=== PATIENT | male | born 1955 | race American Indian/Alaskan Native ===

== ENCOUNTER 2019-09-24 07:50 | Inpatient (IN) | payer MEDICAID, MEDICARE ==
[~2019-09-24 07:50] MED LIST: ALBUMIN HUMAN 5% (12.5 GM/250 ML) INJ IV ONE; CALCIUM CHLORIDE 1,000 MG/10 ML SYRINGE IV ONE
[2019-09-24] MEDS ORDERED: HEPARIN/NS 5000 UNIT/500ML 1,000 ML IR ONE ×2 (08:20→11:26)
[2019-09-24] MEDS ORDERED: LIDOCAINE (2%) 20 MG/1 ML VIAL 20 ML MDV INFILTRATI ONE (08:21)
[2019-09-24 08:27] LABS: Basophils % (Auto) 0.3 % (0.0-1.8); Eosinophils # (Auto) 0.3 K/mm3 (0.0-0.4); Eosinophils % (Auto) 2.7 % (0.0-4.3); Hematocrit 40.2 % (35.5-45.6); Hemoglobin 13.2 gm/dl (11.8-15.2); Lymphocytes # (Auto) 1.5 K/mm3 (1.2-5.4); Lymphocytes % (Auto) 15.9 % (13.4-35.0); Mean Corpuscular HGB Conc 33 % (32-34); Mean Corpuscular Volume 86 fl (84-94); Monocytes # (Auto) 0.9 K/mm3 (0.0-0.8); Monocytes % (Auto) 10.1 % (0.0-7.3); Platelet Count 222 K/mm3 (140-440); Red Blood Count 4.69 M/mm3 (3.65-5.03); Red Cell Distribution Width 17.1 % (13.2-15.2)
[2019-09-24] MEDS ORDERED: ceFAZolin/Water 2 GM/20 ML 2 GM/20 ML SYRINGE IV ONE ×2 (08:35→13:12)
[2019-09-24 08:37] LABS: INR 1.06 (0.87-1.13)
[2019-09-24] MEDS ORDERED: fentaNYL 100 MCG/2 ML INJ ONE (08:42)
[2019-09-24] MEDS ORDERED: SODIUM CHLORIDE 0.9% 500 ML 500 ML IV SCH (09:00)
[2019-09-24] MEDS ORDERED: SODIUM CHLORIDE 0.9% 1000 ML 1,000 ML IV SCH (09:00)
[2019-09-24] MEDS ORDERED: PROTAMINE SULFATE 50 MG/5 ML INJ ONE (09:22)
[2019-09-24] MEDS ORDERED: SODIUM CHLORIDE 0.9% 1000 ML 1,000 ML ONE ×2 (10:14→13:52)
--- NOTE | 2019-09-24 10:49 | Anesthesia Consultation ---
Anesthesia Consult and Med Hx Date of service: 09/24/19 - Airway Anesthetic Teeth Evaluation: Poor ROM Head & Neck: Adequate Mental/Hyoid Distance: Adequate Mallampati Class: Class III Intubation Access Assessment: Possibly Difficult - Pulmonary Exam CTA: Yes - Cardiac Exam Cardiac Exam: RRR - Pre-Operative Health Status ASA Pre-Surgery Classification: ASA3 Proposed Anesthetic Plan: General - Pulmonary Hx Smoking: Yes (former smoker) Hx Respiratory Symptoms: No - Cardiovascular System Hx Hypertension: Yes (took antihypertensives this morning) Hx Heart Attack/AMI: No Hx Percutaneous Transluminal Coronary Angioplasty (PTCA): No Hx Cardia Arrhythmia: No Hx Peripheral Vascular Disease: Yes - Central Nervous System CVA: 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 Now scheduled for EVAR. Anesthetic plan discussed with FUAD.
[2019-09-24] MEDS ORDERED: fentaNYL 100 MCG/2 ML INJ IV PRN (10:50)
--- NOTE | 2019-09-24 10:50 | Anesthesia Day of Surgery ---
Anesthesia Day of Surgery - Day of Surgery Patient Examined: Yes Patient H&P Reviewed: Yes Patient is NPO: Yes Beta Blockers: Yes (metoprolol this morning)
[2019-09-24] MEDS: HEPARIN 10,000 UNITS/10 ML VIAL ONE ×2 (10:55→11:10)
[2019-09-24] MEDS ORDERED: propofoL 200 MG/20 ML VIAL IV ONE ×3 (11:11)
[2019-09-24] MEDS ORDERED: HEPARIN 10,000 UNITS/10 ML VIAL ONE ×2 (11:13→12:10)
--- NOTE | 2019-09-24 14:44 | Post Operative Note ---
Pre-op diagnosis: Infrarenal Abdominal Aortic Aneurysm and Right Common Iliac Aneurysm Post-op diagnosis: same Procedure: 1. Bilateral Percutaneous Femoral Artery Access 2. Right Iliac Branch Endoprosthesis with [place] Excluder [id number], Right Internal Iliac Limb Extension 16 to 12 taper x 7 3. Endovascular Aortic Aneurysm Repair with [place] Excluder Main Body [id number], Right Iliac Limb Extension 27x12, Left Iliac Limb [id number] 4. Aortic Cuff Extension with [place] Excluder 26x3.3cm 5. Closure of Bilateral Femoral Access with Perclose device Anesthesia: GETA Surgeon: AREN RENDON Estimated blood loss: other (300ml) Pathology: none Condition: stable Disposition: PACU
[2019-09-24] MEDS ORDERED: ACETAMINOPHEN 325 MG TAB PO PRN (14:45)
[2019-09-24] MEDS ORDERED: MORPHINE 2 MG/1 ML INJ IV PRN (14:45)
[2019-09-24] MEDS ORDERED: HYDROcodone/ACETAMINOPHEN 5-325 MG TAB PO PRN (14:45)
[2019-09-24] MEDS ORDERED: ceFAZolin/NS 1 GM/50 ML 1 GM/50 ML BAG IV SCH ×3 (15:00→18:00)
[2019-09-24] MEDS ORDERED: LIDOCAINE MPF (2%) 20 MG/1 ML VIAL 5 ML ONE (15:30)
[2019-09-24] MEDS ORDERED: SUCCINYLCHOLINE CHLORIDE 200 MG/10 ML INJ MDV ONE (15:30)
[2019-09-24] MEDS ORDERED: ROCURONIUM 50 MG/5 ML INJ IV ONE (15:30)
[2019-09-24] MEDS ORDERED: GLYCOPYRROLATE 0.4 MG/2 ML INJ IV ONE (15:32)
[2019-09-24] MEDS ORDERED: GLYCOPYRROLATE 0.4 MG/2 ML INJ ONE (15:36)
--- NOTE | 2019-09-24 17:16 | Post Anesthesia Evaluation ---
- Post Anesthesia Evaluation Patient Participated: Yes (returned to baseline mentation) Airway Patent: Yes Stable Respiratory Function: Yes Nausea/Vomiting: No Temp > 96.8F: Yes Pain Manageable: Yes Adequeate Hydration: Yes Anesthesia Complications: No Other Comments: Awaiting final disposition ICU vs IMCU vs surgical floor with telemetry. Patient otherwise stable for d/c from PACU.
--- NOTE | 2019-09-24 19:09 | Operative Report ---
STAFF SURGEON: Dr. Rosendo Gannon. PREOPERATIVE DIAGNOSES: 1. Infrarenal abdominal aortic aneurysm. 2. Right common iliac aneurysm. POSTOPERATIVE DIAGNOSES: 1. Infrarenal abdominal aortic aneurysm. 2. Right common iliac aneurysm. PROCEDURE PERFORMED: 1. Bilateral percutaneous common femoral artery access under ultrasound guidance. 2. Right iliac branch endoprosthesis with [place] excluder device measuring 23 mm x 12 mm x 10 cm with right internal iliac limb extension measuring 16-12 mm tapered graft by 7 cm. 3. Endovascular aortic aneurysm repair with [place] excluder device with the main body measuring 26 mm x 12 x 12 cm with right iliac limb extension measuring 27 mm x 12 cm and the left iliac limb extension measuring 20 mm x 10 cm. 4. Aortic cuff extension with [place] excluder device measuring 26 x 3.3 cm. 5. Closure of bilateral femoral arterial access using Perclose device. COMPLICATIONS: None. ESTIMATED BLOOD LOSS: 300 mL. ANESTHESIA: General. INDICATIONS FOR PROCEDURE: This is a 63-year-old gentleman, who during a recent hospitalization had incidental finding of an approximately 6 cm infrarenal abdominal aortic aneurysm as well as greater than 3 cm right common iliac aneurysm. During that hospitalization, the patient was diagnosed with urosepsis, was felt that the patient would not be appropriate to undergo repair at that time. The patient has now recovered from that illness and thought to be suitable to undergo repair. The patient's anatomy was thought to be suitable for endovascular intervention and after discussion with his family member, it was felt appropriate to proceed. They were explained all the risks, benefits and alternatives of procedure, expressed understanding and wished to proceed. DESCRIPTION OF PROCEDURE: After appropriate consent was obtained, the patient was brought back to the blood bank laboratory technologist, placed on table in supine position. The patient was given appropriate medication for general anesthesia, was intubated without difficulty. The patient was prepped and draped from the nipples to the knees in the usual sterile fashion with ChloraPrep. Appropriate preoperative antibiotics were administered. Appropriate timeout was performed indicating correct patient, procedure, and site of procedure. We then began the operation by obtaining a percutaneous access of both common femoral arteries using a micropuncture technique under ultrasound guidance. As we obtained access, the needle was exchanged for a micropuncture sheath using Seldinger technique and then these were upsized to 6-[place] sheaths bilaterally. We then proceeded to pre-close both groins using the Perclose device x 2 in each groin, which deployed adequately and then both groins were then upsized to an 8-[place] sheath bilaterally. We then proceeded to place a 7 cm Amplatz wires into the thoracic aorta bilaterally and then the right groin was upsized to a 16-[place] sheath and the left groin was upsized to a 12-[place] sheath. We then proceeded to using a refugio wire technique, placed a Glidewire through the right groin. This was then snared from the left groin and to create [id number] wire. Care was made to avoid any twisting of the wire. I then proceeded to bring the iliac branch component through the right groin. Prior to doing so, a diagnostic angiogram was performed, which display the iliac bifurcation on the right and then the iliac branch device was then deployed approximately 1 cm above the iliac bifurcation of the right. Once that was complete, then the dilator was placed back into the 12-[place] sheath on the left and under adequate tension was able to be advanced over the bifurcation through the recently deployed device just proximal to the origin of the right internal iliac artery, then at this point, again using a refugio wire technique from the left angled catheter and Glidewire were then able to cannulate the internal iliac origin on the right and this was advanced into the posterior branch. The catheter was then advanced into the posterior branch. A diagnostic angiogram demonstrating that we were within the branch of the internal iliac artery. The wire was then exchanged for 1 cm stiff Amplatz wire. Catheter was removed. Then, the right internal iliac artery extension was then placed with appropriate overlap and deployed into the internal iliac artery on the right. We then proceeded to bring on the field a 16 mm x 4 cm balloon and balloon the overlap of the iliac branch device and the internal iliac artery extension. Once that was appropriately balloon, this was removed. The rest of the external iliac artery extension was deployed. A completion angiogram was performed demonstrating adequate flow into the right external and internal iliac arteries. We then proceeded to upsize the left groin sheath to a second 16-[place] sheath over an Amplatz wire and then the main body was then placed to the level of the renal arteries. A diagnostic aortogram was performed using a power injector. The renals were adequately marked on the screen. The main body was then deployed. It was felt due to the angulation at the neck that the graft would be deployed several millimeters just below the renals with plans to place an aortic cuff and so the graft was deployed to open the contralateral gate. We then attempted to cannulate the contralateral gate from the right groin using an Omniflush catheter and Glidewire. After multiple attempts, this was unsuccessful and so proceeded to deploy the rest of the main body and then proceeded to perform a diagnostic angiogram demonstrating the origin of the iliac bifurcation on the left. This was marked on the screen. Then, the left iliac extension was deployed. Then, an Omniflush catheter was advanced from the left to the level of the flow divider and then a Glidewire was then placed through the right side of the flow divider into the aneurysm sac. Then, using a ___ the Glidewire was then snared and pulled out through the right groin sheath. Then, a vertebral catheter was then used to be advanced over the Glidewire into the contralateral gate and the Glidewire was then able to be switched out for an Amplatz wire. A marking pigtail catheter was then used to determine the appropriate length of the right iliac extension. Once that was marked on the screen, then the right iliac limb was then adequately deployed with appropriate overlap. We then proceeded to then again go back to the neck of the aneurysm. The renals were adequately marked on the screen. After diagnostic aortogram was performed and an appropriate aortic cuff was deployed just below the renals with adequate overlap with the initial main body, we then using the Q50 balloon, proceeded to balloon the aortic neck as well as all the appropriate overlap of the endograft. Once that was complete, a final diagnostic aortogram was performed demonstrating adequate placement of the endograft with no evidence of endoleak. Once that was complete, we removed the catheters and sheath, and then proceeded to close our previously placed Prolene sutures from the Perclose device in each groin, again was deployed adequately and we then proceeded to hold pressure until hemostasis was obtained. Once we were satisfied with hemostasis, then proceeded to close both groins by approximating the skin with a 4-0 Monocryl and Dermabond dressing. Of note, the patient was given unfractionated heparin. Once the initial 6-[place] sheath was placed and ACTs were obtained throughout the remainder of the case for adequate anticoagulation. At the completion of the operation, the patient was given protamine for heparinization reversal. The patient tolerated the procedure well, he emerged from the general anesthesia, was extubated in the blood bank laboratory technologist and sent to recovery in stable condition. All the sponges, instrument and needle counts were correct at completion of the operation. JOB# [id number] VCN/NTS
[2019-09-24] MEDS: METOPROLOL TARTRATE 25 MG TAB PO SCH (22:38)
[2019-09-24] MEDS: ceFAZolin/NS 1 GM/50 ML 1 GM/50 ML BAG IV SCH (22:38)
[2019-09-25] MEDS: ceFAZolin/NS 1 GM/50 ML 1 GM/50 ML BAG IV SCH (04:14)
[2019-09-25 08:37] LABS: Hematocrit 34.7 % (35.5-45.6); Hemoglobin 11.1 gm/dl (11.8-15.2)
[2019-09-25 08:59] LABS: Calcium 9.7 mg/dL (8.4-10.2)
[2019-09-25] MEDS ORDERED: CLOPIDOGREL 75 MG TAB PO SCH (10:00)
[2019-09-25] MEDS ORDERED: LISINOPRIL 10 MG TAB PO SCH (10:00)
[2019-09-25] MEDS ORDERED: ASPIRIN EC 81 MG TAB PO SCH (10:00)
[2019-09-25] MEDS ORDERED: hydroCHLOROthiazide 25 MG TAB PO SCH (10:00)
[2019-09-25] MEDS ORDERED: TAMSULOSIN 0.4 MG CAP PO SCH (10:00)
[2019-09-25] MEDS ORDERED: amLODIPine 10 MG TAB PO SCH (10:00)
--- NOTE | 2019-09-25 10:31 | Progress Note ---
Assessment and Plan POD #1 s/p PEVAR I removed the rivas Patient is doiing well and without complaints The patient looks well and is likely ready for discharge later this afternoon however he needs to ambulate, eat, and urinate now that the rivas has been rem jennifer. If he is able to do all these things without difficulty then he can be discharged later this afternoon. Subjective Date of service: 09/25/19 Principal diagnosis: AAA without mention of Rupture Interval history: Patient is s/p EVAR. He has not complaints at this time. No reported events over night. Objective - Constitutional Vitals: Vital Signs - 12hr 09/24/19 09/24/19 09/25/19 22:38 23:06 04:10 Temperature 97.9 F 98.0 F Pulse Rate 72 86 90 Respiratory 18 18 Rate Blood Pressure 136/87 136/77 144/88 Blood Pressure [Left] O2 Sat by Pulse 94 95 Oximetry 09/25/19 09/25/19 09/25/19 04:25 05:12 07:40 Temperature 98.5 F 98.0 F 97.5 F L Pulse Rate 92 H 96 H 89 Respiratory 18 18 20 Rate Blood Pressure 125/65 169/88 Blood Pressure 144/88 [Left] O2 Sat by Pulse 100 94 95 Oximetry General appearance: Present: no acute distress - Respiratory Respiratory effort: normal - Cardiovascular Rhythm: regular Extremities: pulses intact (bilateral DP pulses are palpable), normal temperature Extremity abnormal: other (Bilateral groin incisions are without hematoma) - Gastrointestinal General gastrointestinal: Present: soft, non-tender, non-distended, other (no palpable pulsatile mass) - Genitourinary Male genitourinary: normal (rivas in place) - Musculoskeletal Musculoskeletal: strength equal bilaterally - Labs CBC & Chem 7: 09/25/19 07:44 09/25/19 07:44 Labs: Abnormal lab results 09/25/19 09/25/19 Range/Units 07:44 07:44 Hgb 11.1 L (11.8-15.2) gm/dl Hct 34.7 L (35.5-45.6) % Potassium 3.4 L (3.6-5.0) mmol/L Carbon Dioxide 18 L (22-30) mmol/L Glucose 128 H (75-100) mg/dL Medications & Allergies - Medications Allergies/Adverse Reactions: Allergies No Known Allergies Allergy (Verified 09/24/19 08:20) Home Medications: Home Medications Medication Instructions Recorded Confirmed Last Taken Type AtorvaSTATin [Lipitor] 20 mg PO DAILY 09/01/19 09/24/19 09/23/19 History 20 mg Metoprolol [Lopressor TAB] 25 mg PO BID 09/01/19 09/24/19 09/24/19 History 25 mg allopurinoL [Zyloprim] 100 mg PO DAILY 09/01/19 09/24/19 09/24/19 History 100 mg amLODIPine 10 mg PO DAILY 09/01/19 09/24/19 09/24/19 History 10 mg hydroCHLOROthiazide [HCTZ] 25 mg PO DAILY 09/01/19 09/24/19 09/24/19 History 25 mg lisinopriL [Zestril TAB] 10 mg PO DAILY 09/01/19 09/24/19 09/24/19 History 10 mg Tamsulosin [Flomax] 0.4 mg PO DAILY 09/24/19 09/24/19 09/24/19 History 0.4mg Active Medications: Generic Name Dose Route Start Last Admin Trade Name Freq PRN Reason Stop Dose Admin Acetaminophen 650 mg 09/24/19 14:45 Tylenol PO Q4H PRN Pain MILD(1-3)/Fever >100.5/NAVARRO Acetaminophen/Hydrocodone Bitart 2 each 09/24/19 14:45 [place] 5/325 PO Q6H PRN Pain, Moderate (4-6) Amlodipine Besylate 10 mg 09/25/19 10:00 Amlodipine PO QDAY ANNIKA Aspirin 81 mg 09/25/19 10:00 Halfprin Ec PO QDAY ANNIKA Atorvastatin Calcium 20 mg 09/24/19 22:00 09/24/19 22:38 Lipitor PO 20 mg QHS ANNIKA Administration Clopidogrel Bisulfate 75 mg 09/25/19 10:00 Plavix PO QDAY ANNIKA Hydrochlorothiazide 25 mg 09/25/19 10:00 Hctz PO QDAY ANNIKA Sodium Chloride 500 mls @ 50 mls/hr 09/24/19 09:00 09/24/19 09:10 Nacl 0.9% 500 Ml IV 50 mls/hr DIRECT ANNIKA Administration Sodium Chloride 1,000 mls @ 100 mls/hr 09/24/19 09:00 Nacl 0.9% 1000 Ml IV DIRECT ANNIKA Lisinopril 10 mg 09/25/19 10:00 Zestril PO QDAY ANNIKA Metoprolol Tartrate 25 mg 09/24/19 22:00 09/24/19 22:38 Metoprolol PO 25 mg BID ANNIKA Administration Morphine Sulfate 2 mg 09/24/19 14:45 Morphine IV Q4H PRN Pain, Moderate (4-6) Tamsulosin HCl 0.4 mg 09/25/19 10:00 Flomax PO QDAY ANNIKA
--- NOTE | 2019-09-25 10:38 | Short Stay Summary ---
Short Stay Documentation Date of service: 09/25/19 Narrative H&P: See H&P - History H&P: obtained from office - Allergies and Medications Current Medications: Allergies No Known Allergies Allergy (Verified 09/24/19 08:20) Home Medications Medication Instructions Recorded Confirmed Last Taken Type AtorvaSTATin [Lipitor] 20 mg PO DAILY 09/01/19 09/24/19 09/23/19 History 20 mg Metoprolol [Lopressor TAB] 25 mg PO BID 09/01/19 09/24/19 09/24/19 History 25 mg allopurinoL [Zyloprim] 100 mg PO DAILY 09/01/19 09/24/19 09/24/19 History 100 mg amLODIPine 10 mg PO DAILY 09/01/19 09/24/19 09/24/19 History 10 mg hydroCHLOROthiazide [HCTZ] 25 mg PO DAILY 09/01/19 09/24/19 09/24/19 History 25 mg lisinopriL [Zestril TAB] 10 mg PO DAILY 09/01/19 09/24/19 09/24/19 History 10 mg Tamsulosin [Flomax] 0.4 mg PO DAILY 09/24/19 09/24/19 09/24/19 History 0.4mg Active Medications Acetaminophen (Tylenol) 650 mg PO Q4H PRN PRN Reason: Pain MILD(1-3)/Fever >100.5/NAVARRO Acetaminophen/Hydrocodone Bitart ([place] 5/325) 2 each PO Q6H PRN PRN Reason: Pain, Moderate (4-6) Amlodipine Besylate (Amlodipine) 10 mg PO QDAY [facility] Aspirin (Halfprin Ec) 81 mg PO QDAY [facility] Atorvastatin Calcium (Lipitor) 20 mg PO QHS [facility] Last Admin: 09/24/19 22:38 Dose: 20 mg Documented by: Clopidogrel Bisulfate (Plavix) 75 mg PO QDAY [facility] Hydrochlorothiazide (Hctz) 25 mg PO QDAY [facility] Sodium Chloride (Nacl 0.9% 500 Ml) 500 mls @ 50 mls/hr IV DIRECT [facility] Last Admin: 09/24/19 09:10 Dose: 50 mls/hr Documented by: Sodium Chloride (Nacl 0.9% 1000 Ml) 1,000 mls @ 100 mls/hr IV DIRECT ANNIKA Lisinopril (Zestril) 10 mg PO QDAY [facility] Metoprolol Tartrate (Metoprolol) 25 mg PO BID [facility] Last Admin: 09/24/19 22:38 Dose: 25 mg Documented by: Morphine Sulfate (Morphine) 2 mg IV Q4H PRN PRN Reason: Pain, Moderate (4-6) Tamsulosin HCl (Flomax) 0.4 mg PO QDAY [facility] - Physical exam Extremities: pulses intact (bilateral DP pulses are palpable), normal temperature - Brief post op/procedure progress note Procedure: See Operative Note for full details - Hospital course Hospital course: The patient was admitted and underwent an uneventful EVAR on 09/24/2019. Postoperatively he was admitted to the telemetry floor where his course was uneventful. He did well and was able to be discharged on postoperative day #1. - Disposition Condition at discharge: Good Disposition: DC-01 TO HOME OR SELFCARE Short Stay Discharge Plan Activity: other (No strenuous activity for 2 weeks) Wound: open to air, keep clean and dry, other (Okay to shower and wash the wounds with soap and water but do not soak in water.) Follow up with: AREN RENDON MD [Staff Physician] - 14 Days Prescriptions: HYDROcodone/APAP 7.5-325 [[place] 7.5/325] 1 each PO Q6HR PRN #30 tablet PRN Reason: Pain Clopidogrel [Plavix] 75 mg PO QDAY #90 tablet
[2019-09-25] MEDS: METOPROLOL TARTRATE 25 MG TAB PO SCH (11:09)
[2019-09-25 20:08] VITALS: BP 151/101
== END 2019-09-25 22:15 | disposition home or self-care (01) | DRG 276 ==
LOC: CATHLABREC 07:50 → EDSTATUS 08:00 → 3A 14:45 → OBSVTOIN 14:45 → 4A 18:49
PROVIDERS: ADMIT Surgery Vascular Surgery; ATTEND Surgery Vascular Surgery
PROC: 04V03EZ Restriction of Abdominal Aorta with Branched or Fenestrated Intraluminal Device, One or Two Arteries, Percutaneous Approach (ICD-10-PCS; principal; 2019-09-24)
DX: I71.4 Abdominal aortic aneurysm, without rupture (principal); I69.351 Hemiplegia and hemiparesis following cerebral infarction affecting right dominant side; I72.3 Aneurysm of iliac artery; Z79.899 Other long term (current) drug therapy; E66.9 Obesity, unspecified; Z68.32 Body mass index [BMI] 32.0-32.9, adult; I12.9 Hypertensive chronic kidney disease with stage 1 through stage 4 chronic kidney disease, or unspecified chronic kidney disease; N18.9 Chronic kidney disease, unspecified; Z87.891 Personal history of nicotine dependence; F03.90 Unspecified dementia, unspecified severity, without behavioral disturbance, psychotic disturbance, mood disturbance, and anxiety
CPT/HCPCS: 34703; 34709; 34713; 34717; 36415; 80048; 85014; 85018; 85025; 85347; 85610; 85730; 86850; 86900; 86901; 86920; 94760; 96365; 96366; 96375; 96376; G0378; A9270-GY; C1725; C1760; C1769; C1773; C1885; C1887; C1894; C2628; J0330; J0690; J1644; J2704; J2720; J3010; J7030; J7040; P9045; Q9967

== ENCOUNTER 2019-11-26 10:05 | Outpatient (CLI) | payer MEDICARE ==
--- NOTE | 2019-11-26 13:59 | Cat Scan Report ---
CT angio abdomen pelvis INDICATION / CLINICAL INFORMATION: ANEURYSM OF ILIAC ARTERY. TECHNIQUE: Axial CT images were obtained after injection of IV contrast using CTA protocol. 3 plane MIP / 3D rec onstructions were produced. All CT scans at this location are performed using CT dose reduction for A WILLIAM by means of automated exposure control. COMPARISON: 09/01/2019 FINDINGS: abdominal aorta is normal with no plaque formation seen. The celiac and SMA axes are widely patent as well as are the renal arteries. There has been interval placement of an aortic endograft a ppearing to be in good position. Both graft limbs are patent. There appears be retrograde filling of a lumbar artery with slight opacification of the [place] aneurysm lumen. Residual aneurysm measures 6. 5 x 5.6 cm. Bilateral renal cysts are seen right greater than left. CTA of the pelvis shows vascular stent in the proximal right internal iliac artery is well. The resid ual right common iliac artery aneurysm measures 2.8 cm in diameter. The [place] external and internal iliac arteries are widely patent with little if any plaque formation. No femoral artery aneurysm. Pro state may be minimally enlarged. Appendix is normal. No diverticulosis or diverticulitis. IMPRESSION: 1. Interval aortic endograft placement. 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 Signer Name: Kavin Hammond MD Signed: 11/26/2019 1:55 PM Workstation Name: [id number]
== END 2019-11-26 10:06 | disposition home or self-care (01) ==
LOC: CT 10:05
PROVIDERS: ATTEND Surgery Vascular Surgery
DX: I72.3 Aneurysm of iliac artery (principal); Z98.890 Other specified postprocedural states
CPT/HCPCS: 36415; 74174; 82565; 84520; Q9967

== ENCOUNTER 2020-09-01 14:39 | Emergency (ER) | payer MEDICARE ==
--- NOTE | 2020-09-01 16:15 | Emergency Department Report ---
ED Extremity Problem HPI - General Chief complaint: Extremity Problem,Nontraumatic Stated complaint: FOOT PAIN Time Seen by Provider: 09/01/20 16:14 Source: EMS Mode of arrival: Stretcher Limitations: Other - History of Present Illness Initial comments: 67-year-old male with history of dementia, gout, presents to the ED from personal group home for foot care. EMS states personal group home director sent patient to ED for "foot care." Patient was witnessed ambulating with walker by EMS. Patient denies any pain to his feet. Able to move feet and wiggle toes. I spoke with patient's daughter, Amna, over the phone, who then connected me with the nurse at the personal group home, Marisol. Kimberly states that she noticed patient had a wound on the top of the right foot which appeared to be leaking pus. Patient reports patient has swelling to bilateral feet, however this is common for him, and it usually resolves with elevation. Patient also has been complaining of pain in the right groin when walking up stairs for approximately 2 to 3 weeks. Patient normally ambulates with a cane but has been using a walker for the last 2 days for ambulation. She denies that patient has had fever. Patient has upcoming appointment with his PCP in 4 days. MD Complaint: other -: week(s) (3) Location: right, lower extremity -: No fever Consistency: intermittent Improves with: immobilization, elevation Worsens with: walking Associated Symptoms: denies: fever - Related Data Previous Rx's Medication Instructions Recorded Last Taken Type Nystatin Cream [Mycostatin Cream] 1 applic TP BID #1 tube 09/01/20 Unknown Rx ED Review of Systems ROS: Stated complaint: FOOT PAIN Other details as noted in HPI Comment: Unobtainable due to pts medical conditions (dementia, pt not a good historian) Constitutional: denies: fever Musculoskeletal: as per HPI ED Past Medical Hx - Past Medical History Previous Medical History?: Yes Hx Dementia: Yes Additional medical history: Gout - Social History Smoking Status: Unknown if ever smoked - Medications Home Medications: Home Medications Medication Instructions Recorded Confirmed Last Taken Type Nystatin Cream [Mycostatin Cream] 1 applic TP BID #1 tube 09/01/20 Unknown Rx ED Physical Exam - General Limitations: Other General appearance: alert, in no apparent distress - Head Head exam: Present: atraumatic, normocephalic - Eye Eye exam: Present: normal appearance - ENT ENT exam: Present: mucous membranes moist - Neck Neck exam: Present: normal inspection - Respiratory Respiratory exam: Present: normal lung sounds bilaterally. Absent: respiratory distress - Cardiovascular Cardiovascular Exam: Present: regular rate, normal rhythm - GI/Abdominal GI/Abdominal exam: Present: soft. Absent: distended, tenderness, hernia - exam: Present: other (Jaden, medic, present for exam). Absent: testicular tenderness, scrotal swelling External exam: Present: other (areas of yeast present) - Extremities Exam Extremities exam: Present: normal capillary refill, pedal edema, other (1+ edema to bilateral feet; no erythema/ open wounds/ purulent discharge present; feet are nontender; able to flex/ extend feet and toes). Absent: tenderness - Neurological Exam Neurological exam: Absent: oriented X3 (baseline dementia) - Psychiatric Psychiatric exam: Present: normal affect, normal mood - Skin Skin exam: Present: warm, dry, intact, normal color ED Course Vital Signs 09/01/20 09/01/20 16:33 21:07 Temperature 98.3 F 97.9 F Pulse Rate 72 69 Respiratory 16 16 Rate Blood Pressure 128/62 121/63 [Left] O2 Sat by Pulse 98 98 Oximetry ED Medical Decision Making - Radiology Data Radiology results: report reviewed, image reviewed - Medical Decision Making Feet appear normal except for some pedal edema bilaterally. There is no tenderness present. No signs stable. Daughter reported patient had complained of some right groin pain with ambulation. Right hip x-ray was negative. There is no evidence of hernia on exam. Patient will be discharged home to follow-up with PCP in a few days. Return precautions given. Critical care attestation.: If time is entered above; I have spent that time in minutes in the direct care of this critically ill patient, excluding procedure time. ED Disposition Clinical Impression: Pedal edema, Degenerative joint disease of right hip, Eliz infection of genital region Disposition: TO HOME OR SELFCARE Is pt being admited?: No Condition: Stable Instructions: Osteoarthritis, Genital Yeast Infection, Male, Edema, [id number] Prescriptions: Nystatin Cream [Mycostatin Cream] 1 applic TP BID #1 tube Referrals: PRIMARY CARE, [Referring] - 3-5 Days Time of Disposition: 17:50
--- NOTE | 2020-09-01 17:34 | XRay Report ---
RIGHT HIP 2 VIEW(S) INDICATION / CLINICAL INFORMATION: Right hip pain COMPARISON: None available. FINDINGS: BONES / JOINT(S): No acute fracture or subluxation. 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 SOFT TISSUES: No significant abnormality. ADDITIONAL FINDINGS: Aortobiiliac stent graft is seen. Signer Name: Obey Orosco MD Signed: 09/01/2020 5:30 PM Workstation Name: [id number]
[2020-09-01 21:14] VITALS: BP 121/63
== END 2020-09-01 21:07 | disposition home or self-care (01) ==
LOC: EDBD → ED 14:39 → MERGE 14:39 → ED 21:07
DX: M16.11 Unilateral primary osteoarthritis, right hip (principal); R60.9 Edema, unspecified; B37.9 Candidiasis, unspecified; F03.90 Unspecified dementia, unspecified severity, without behavioral disturbance, psychotic disturbance, mood disturbance, and anxiety; Z79.899 Other long term (current) drug therapy

== ENCOUNTER 2020-10-18 19:37 | Emergency (ER) | payer MEDICARE ==
--- NOTE | 2020-10-18 21:01 | Emergency Department Report ---
ED CPR HPI - General Chief Complaint: Cardiac Arrest/CPR Stated Complaint: CARDIAC ARREST Time Seen by Provider: 10/18/20 19:50 Source: EMS (Verbal report received from emergency medical services. EMS documentation not available at time of chart dictation ), RN notes reviewed, old records reviewed Mode of arrival: Stretcher Limitations: Altered Mental Status, Physical Limitation, Other - History of Present Illness Initial Comments: The patient was evaluated in the emergency department for symptoms described in the history of present illness. He/she was evaluated in the context of the global COVID-19 pandemic, which necessitated consideration that the patient might be at risk for infection with the virus that causes COVID-19. Institutional protocols and algorithms that pertain to the evaluation of patients at risk for COVID-19 are in a state of rapid change based on information released by regulatory bodies including the CDC and federal and state organizations. These policies and algorithms were followed during the patient's care in the emergency department. Please note that these policies, procedures and recommendations changed on a rapid basis. This is a 65-year-old gentleman. He is not known to myself previously. He is brought to the hospital by emergency medical services as an [id number] nontraumatic cardiac arrest. Patient arrives intubated, receiving CPR, with a GCS of 3T. History is entirely obtained from EMS. EMS reported to myself that patient's last known well time was approximately 18: 20 this evening, [facility]. EMS reported to myself that it was reported that the patient "took a big breath", and then collapsed. EMS reports that senior care staff started CPR. EMS reports that upon their arrival, the patient was not breathing with a GCS of 3, with pulseless electrical activity, and did not have a shockable rhythm. Patient received high-quality CPR. Patient received 4 rounds of epinephrine. Patient received bicarbonate in the field. Rhythm becomes asystole in the field. EMS reports patient is approximately pulseless for 1 hour, prior to arrival to this emergency room. Upon arrival to this emergency room, patient is pulseless, in asystole, with pupils dilated, which do not react to light. Standard ACLS interventions were continued, but pulses cannot be reobtained, and therefore, resuscitation efforts were terminated secondary to medical futility. Patient not accompanied by friends or family at this time. MD Complaint: stopped breathing, collapsed during rest -: minute(s) Place: [place] Bystander CPR Performed: Yes AED Applied by Bystander/Construction Job Titles: No Shock Advised: No Initial Findings in the Field: no pulse ROSC in the Field: No Associated Injuries: No Treatments Prior to Arrival: intubation, chest compressions, epinephrine mgs #, sodium bicarbonate - Related Data Home Medications Medication Instructions Recorded Confirmed Last Taken AtorvaSTATin [Lipitor] 20 mg PO DAILY 09/01/19 09/24/19 09/23/19 20 mg Metoprolol [Lopressor TAB] 25 mg PO BID 09/01/19 09/24/19 09/24/19 25 mg allopurinoL [Zyloprim] 100 mg PO DAILY 09/01/19 09/24/19 09/24/19 100 mg amLODIPine 10 mg PO DAILY 09/01/19 09/24/19 09/24/19 10 mg hydroCHLOROthiazide [HCTZ] 25 mg PO DAILY 09/01/19 09/24/19 09/24/19 25 mg lisinopriL [Zestril TAB] 10 mg PO DAILY 09/01/19 09/24/19 09/24/19 10 mg Tamsulosin [Flomax] 0.4 mg PO DAILY 09/24/19 09/24/19 09/24/19 0.4mg Previous Rx's Medication Instructions Recorded Last Taken Type Clopidogrel [Plavix] 75 mg PO QDAY #90 tablet 09/25/19 Unknown Rx HYDROcodone/APAP 7.5-325 [[place] 1 each PO Q6HR PRN #30 tablet 09/25/19 Unknown Rx 7.5/325] Nystatin Cream [Mycostatin Cream] 1 applic TP BID #1 tube 09/01/20 Unknown Rx Allergies Allergy/AdvReac Type Severity Reaction Status Date / Time No Known Allergies Allergy Verified 09/02/20 09:39 ED Review of Systems ROS: Stated complaint: CARDIAC ARREST Other details as noted in HPI Comment: Unobtainable due to pts medical conditions ED Past Medical Hx - Past Medical History Hx Hypertension: Yes (took antihypertensives this morning) Hx CVA: Yes Hx Heart Attack/AMI: No Hx Liver Disease: No Hx Renal Disease: Yes (CKD) Hx Dementia: Yes Additional medical history: Gout - Social History Smoking Status: Unknown if ever smoked - Medications Home Medications: Home Medications Medication Instructions Recorded Confirmed Last Taken Type AtorvaSTATin [Lipitor] 20 mg PO DAILY 09/01/19 09/24/19 09/23/19 History 20 mg Metoprolol [Lopressor TAB] 25 mg PO BID 09/01/19 09/24/19 09/24/19 History 25 mg allopurinoL [Zyloprim] 100 mg PO DAILY 09/01/19 09/24/19 09/24/19 History 100 mg amLODIPine 10 mg PO DAILY 09/01/19 09/24/19 09/24/19 History 10 mg hydroCHLOROthiazide [HCTZ] 25 mg PO DAILY 09/01/19 09/24/19 09/24/19 History 25 mg lisinopriL [Zestril TAB] 10 mg PO DAILY 09/01/19 09/24/19 09/24/19 History 10 mg Tamsulosin [Flomax] 0.4 mg PO DAILY 09/24/19 09/24/19 09/24/19 History 0.4mg Clopidogrel [Plavix] 75 mg PO QDAY #90 tablet 09/25/19 Unknown Rx HYDROcodone/APAP 7.5-325 [[place] 1 each PO Q6HR PRN #30 tablet 09/25/19 Unknown Rx 7.5/325] Nystatin Cream [Mycostatin Cream] 1 applic TP BID #1 tube 09/01/20 Unknown Rx ED Physical Exam - General Limitations: Altered Mental Status, Physical Limitation General appearance: other (GCS 3 T, nonverbal) - Head Head exam: Present: atraumatic, normocephalic - Eye Eye exam: Present: other (Pupils are dilated and do not react to light) - ENT ENT exam: Present: normal exam, normal external ear exam, other (Endotracheal tube noted in the oropharynx) - Neck Neck exam: Present: normal inspection - Respiratory Respiratory exam: Present: other (Patient is not breathing spontaneously). Absent: normal lung sounds bilaterally, respiratory distress - Cardiovascular Cardiovascular Exam: Present: other (Patient is pulseless). Absent: regular rate, normal rhythm, systolic murmur, diastolic murmur, rubs, gallop - GI/Abdominal GI/Abdominal exam: Present: soft - Rectal Rectal exam: Present: deferred - Extremities Exam Extremities exam: Present: normal inspection - Back Exam Back exam: Present: normal inspection - Neurological Exam Neurological exam: Present: altered, other (Nonverbal, GCS 3 T) - Skin Skin exam: Present: warm, dry, intact, normal color. Absent: rash ED Medical Decision Making - Medical Decision Making Differential diagnosis, including but not limited to: Pulmonary embolism, intracranial hemorrhage, ruptured AAA, sepsis, acute coronary syndrome Critical care attestation.: If time is entered above; I have spent that time in minutes in the direct care of this critically ill patient, excluding procedure time. ED Disposition Clinical Impression: Cardiac arrest Disposition: DC-20 Is pt being admited?: No Does the pt Need Aspirin: No Condition: Undetermined Referrals: PRIMARY CARE, [Primary Care Provider] - 3-5 Days
== END 2020-10-18 22:00 ==
LOC: ED 19:37
DX: I46.9 Cardiac arrest, cause unspecified (principal); I10 Essential (primary) hypertension; F03.90 Unspecified dementia, unspecified severity, without behavioral disturbance, psychotic disturbance, mood disturbance, and anxiety; Z86.73 Personal history of transient ischemic attack (TIA), and cerebral infarction without residual deficits; Z79.899 Other long term (current) drug therapy
CPT/HCPCS: 92950